=== PATIENT | female | born 1980 | race Caucasian/White ===

== ENCOUNTER 2024-09-11 16:40 | Emergency (ER) | payer OTHER, SELFPAY ==
[2024-09-11] VITALS (18 sets, daily range): BP systolic 120–144; BP diastolic 62–90; PULSE 80–92; RESP 13–26; TEMP 36.8–36.9; O2SAT 97–100; BMI 39.4
--- NOTE | 2024-09-11 18:07 | PC.NURSE ---
pt Was recently placed on blood thinners and began having vaginal bleeding. She recently began feeling dizzy and near syncopal and was sent to the ER for eval. An attempt as made to get an IV placed. This nurse made two attempts unsuccessfully to get an IV placed.
--- NOTE | 2024-09-11 18:33 | ED.FEMALEGU ---
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 Patient states that she was diagnosed with a left-sided DVT as well as bilateral PE not requiring supplemental oxygen on August 26, 2024 was told this was secondary to her control therefore was told to stop this and is now on Xarelto. She presents to outside hospital on 09/10/2024 due to persistent vaginal bleeding, she states that she had an ultrasound and was started on TXA in order to help with her bleeding. She states that she does not have an OBGYN but is already referred for 1. She states that after taking 2 dose of TXA her bleeding had stopped but she is here today because she is still feeling lightheaded dizzy. She denies any trauma or falls. Denies any actual chest pain shortness breath fever chills nausea vomiting abdominal pain pelvic pain or any other GI/ symptoms at this time. Review of records does show patient had ultrasound and lab work at outside hospital, ultrasound just showing 1.1 cm intramural fibroid, hemoglobin at that time was 9.4 patient was discharged home on TXA 1300 mg 3 times a day for the next 5 days. Related Data Allergies Allergy/AdvReac Type Severity Reaction Status Date / Time adhesive Allergy Intermediate Rash Verified 09/11/24 16:50 erythromycin base Allergy Intermediate Verified 09/11/24 16:50 Review of Systems Review of Systems Narrative: General: Denies fever, chills, weight loss HEENT: Denies headache, eye drainage, eye irritation, head trauma, sore throat, voice change Cardiovascular: Denies any chest pain, palpitations, tachycardia Respiratory: Denies any shortness of breath, cough, wheeze, stridor GI/: Positive vaginal bleeding Denies any abdominal pain, nausea, vomiting, diarrhea, bright red blood per rectum, melanotic stools, urinary frequency, urinary retention, dysuria, hematuria MSK: Denies any joint pain, muscle pains, swelling Skin: Denies any rashes, lesions, discoloration Neuro: Denies any headache, lightheadedness, dizziness, fainting, weakness Psych: Denies SI/HI Exam Narrative Exam Narrative: General: Cooperative, well-developed, not in acute distress HEENT: Normocephalic, atraumatic, PERRLA, normal sclera, eyelids normal Neck: Active full range of motion, atraumatic Chest: Normal to inspection, negative crepitus, no overlying erythema ecchymosis Respiratory: Normal respiratory effort, not in acute respiratory distress, clear to auscultation bilaterally negative cough, wheeze, tachypnea, rhonchi, rales Cardiology: Regular rate rhythm negative gallop, murmur, rubs GI/: No tenderness to palpation, soft, non rigid, normal to inspection, exam deferred MSK: Full active range of motion in all 4 extremities, atraumatic, no tenderness to palpation of any bony prominences Skin: No rashes or lesions noted Neuro: Alert awake oriented x3, moves all 4 extremities spontaneously, cranial nerves intact, able to answer all questions appropriately follows commands appropriately Psych: Cooperative, negative suicidal or homicidal ideations Initial Vital Signs Initial Vital Signs: Vital Signs Temperature 98.4 F 09/11/24 16:50 Pulse Rate 80 09/11/24 16:50 Respiratory Rate 19 09/11/24 16:50 Blood Pressure 141/62 H 09/11/24 16:50 Pulse Oximetry 100 09/11/24 16:50 Oxygen Delivery Method Room Air 09/11/24 16:50 Course Orders Ordered: ED Orders 09/11/24 18:45 Complete Blood Count AUTO DIFF Stat Comprehensive Metabolic Panel Stat Packed Cells Stat Type and Screen Stat Discontinued Medications Sodium Chloride (Normal Saline 0.9%) 1,000 mls @ 1,000 mls/hr IV BOLUS ONE Stop: 09/11/24 17:58 Last Infusion: 09/11/24 21:09 Dose: Infused Documented By: Admin: 09/11/24 18:47 Dose: 1,000 mls/hr Documented By: SHASHI Tranexamic Acid (Tranexamic Acid 1,000 Mg Vial) 1,300 mg PO NOW ONE Stop: 09/11/24 21:30 Last Admin: 09/11/24 22:20 Dose: 1,300 mg Documented By: CHINA Vital Signs Vital signs: Vital Signs - 8 hr 09/11/24 16:50 09/11/24 19:04 09/11/24 19:30 Temperature 98.4 F Pulse Rate 80 85 Respiratory Rate 19 16 Blood Pressure 141/62 H 144/85 H Pulse Oximetry 100 100 Oxygen Delivery Method Room Air 09/11/24 19:30 09/11/24 20:00 09/11/24 20:00 Temperature Pulse Rate 84 87 Respiratory Rate 17 19 Blood Pressure 139/87 Pulse Oximetry 100 98 Oxygen Delivery Method 09/11/24 20:30 09/11/24 20:30 09/11/24 20:46 Temperature 98.2 F Pulse Rate 87 86 Respiratory Rate 20 18 Blood Pressure 143/84 H 143/76 H Pulse Oximetry 99 Oxygen Delivery Method 09/11/24 20:47 09/11/24 20:47 09/11/24 21:00 Temperature Pulse Rate 88 91 H Respiratory Rate 16 16 Blood Pressure 143/76 H Pulse Oximetry 99 100 Oxygen Delivery Method 09/11/24 21:00 09/11/24 21:04 09/11/24 21:06 Temperature 98.2 F Pulse Rate 86 Respiratory Rate 13 Blood Pressure 139/79 135/79 135/79 Pulse Oximetry Oxygen Delivery Method 09/11/24 21:06 09/11/24 21:15 09/11/24 21:15 Temperature Pulse Rate 84 88 Respiratory Rate 23 16 Blood Pressure 138/77 Pulse Oximetry 99 98 Oxygen Delivery Method 09/11/24 21:30 09/11/24 21:30 09/11/24 21:45 Temperature Pulse Rate 90 91 H Respiratory Rate 18 16 Blood Pressure 143/80 H Pulse Oximetry 98 98 Oxygen Delivery Method 09/11/24 21:45 09/11/24 22:00 09/11/24 22:00 Temperature Pulse Rate 87 Respiratory Rate 14 Blood Pressure 120/67 133/86 Pulse Oximetry 99 Oxygen Delivery Method 09/11/24 22:15 09/11/24 22:15 09/11/24 22:30 Temperature Pulse Rate 91 H Respiratory Rate 23 Blood Pressure 133/90 134/85 Pulse Oximetry 98 Oxygen Delivery Method 09/11/24 22:30 09/11/24 22:45 09/11/24 22:45 Temperature Pulse Rate 90 87 Respiratory Rate 16 23 Blood Pressure 125/68 Pulse Oximetry 99 98 Oxygen Delivery Method Room Air 09/11/24 23:00 09/11/24 23:00 Temperature Pulse Rate 92 H Respiratory Rate 26 H Blood Pressure 132/74 Pulse Oximetry 97 Oxygen Delivery Method Room Air MDM - Female Genitourinary Differential Diagnosis Differential diagnosis: Likely other (Vaginal bleeding, dysfunctional uterine bleeding, anemia) Lab Data 09/11/24 18:45 09/11/24 18:45 Labs: Lab Results 09/11/24 Range/Units 18:45 WBC 12.4 H (4.5-11.0) X10^3/uL RBC 2.92 L (4.0-5.2) X10^6/uL Hgb 7.9 L (12.0-16.0) g/dL Hct 23.2 L (36-46) % MCV 79.6 L (80-100) fL MCH 27.1 (26-34) PG MCHC 34.0 (30-36) % RDW 14.5 (11.6-14.8) % Plt Count 319 (150-400) X10^3/uL Neut % (Auto) 70.7 (50-75) % Lymph % (Auto) 21.8 L (25-40) % [facility] % (Auto) 3.4 (3-14) % Eos % (Auto) 3.3 (2-4) % Baso % (Auto) 0.8 (0-2) % Neut # (Auto) 8800 H (3732-7366) /uL Lymph # (Auto) 2700 (9426-4630) /uL [facility] # (Auto) 400 (0-900) /uL Eos # (Auto) 400 (0-450) /uL Baso # (Auto) 100 (0-100) /uL Sodium 136 L (137-145) mmol/L Potassium 4.3 (3.4-5.1) mmol/L Chloride 104 (98-107) mmol/L Carbon Dioxide 27 (22-32) mmol/L BUN 13 (7-17) mg/dL Creatinine 0.79 (0.52-1.04) mg/dL Estimated GFR > 60 (>60) mL/min BUN/Creatinine Ratio 16.5 (6-22) Glucose 111 H (70-99) mg/dL Calcium 8.6 (8.4-10.2) mg/dL Total Bilirubin 0.2 (0.2-1.3) mg/dL AST 43 H (14-36) IU/L ALT 44 H (<35) IU/L Alkaline Phosphatase 55 (38-126) U/L Total Protein 6.5 (6.3-8.2) g/dL Albumin 3.5 (3.5-5.0) g/dL Globulin 3.0 (1.7-4.1) g/dL Albumin/Globulin Ratio 1.2 (1.0-2.8) Blood Type A Positive Antibody Screen Negative Crossmatch See Detail MDM Narrative Medical decision making narrative: 44-year-old female with a history of abnormal dysfunctional uterine bleeding, DVT PE on Xarelto secondary to control which was started and diagnosed on August 26, 2024 presenting for persistent vaginal bleeding, she was seen at outside hospital had normal ultrasound was started on TXA 1300 mg b.i.d. for 5 days, patient states that she has taken 2 doses of this has had decreased bleeding but states that she presents today via EMS due to the fact that she had an episode light-headedness and dizziness and syncope. But no trauma or falls. Patient had lab work performed here. Patient's hemoglobin of 7.9, given patient with symptomatic anemia we will provide transfusion RBC here. 1912: Blood consent was obtained 2318: Patient had transfusion completed here in the emergency department without any issues, we would give her her dose of for TXA here, patient was instructed to follow up with primary care and OBGYN in outpatient setting, she verbalized understanding of this and agrees to being discharged home with outpatient follow up Discharge Plan Departure Patient Disposition: Home Clinical Impression: Symptomatic anemia, Abnormal uterine bleeding Activity Restrictions/Additional Instructions: Please follow up with primary care and OBGYN in outpatient setting Please read the discharge instructions sheet carefully and bring all papers to all doctor follow-up visits, as it may contain information that your doctor may want to see. Disease processes change and evolve, if your symptoms worsen or if you develop any new symptoms that are concerning to you please return for evaluation. Your evaluation today does not show any evidence of any life-threatening/serious illnesses requiring admission to the hospital or surgery. Please follow-up with your doctor for re-evaluation in approximately 1 day. Seek immediate medical attention for any worrisome symptoms. *If you do not have a primary care provider please contact the [facility] Resource line at [phone]. They will ask some questions about your medical history and help get you set up with a doctor in the community. Referrals: Estefanía Gardner MD [Physician, [employer]PERATOR] Referral Note: Abnormal uterine bleeding with symptomatic anemia Stand Alone Forms: Patient Portal/API
[2024-09-11] MEDS: SODIUM CHLORIDE 0.9% 1,000 ML 1000 ML IV (18:47)
[2024-09-11 18:59] LABS: Add Manual Diff / Slide Review NO; Hematocrit 23.2 % (36-46); Hemoglobin 7.9 g/dL (12.0-16.0); Lymphocytes Absolute Auto 2700 /uL (1100-4500); Mean Corpuscular HGB Conc 34.0 % (30-36); Mean Corpuscular Hemoglobin 27.1 PG (26-34); Mean Corpuscular Volume 79.6 fL (80-100); Platelet Count 319 X10^3/uL (150-400)
[2024-09-11 19:17] LABS: Alanine Aminotransferase 44 IU/L (<35); Albumin 3.5 g/dL (3.5-5.0); Albumin Globulin Ratio 1.2 (1.0-2.8); Alkaline Phosphatase 55 U/L (38-126); Blood Urea Nitrogen 13 mg/dL (7-17); Calcium 8.6 mg/dL (8.4-10.2); Carbon Dioxide 27 mmol/L (22-32); Chloride 104 mmol/L (98-107); Estimated Glomerular Filt Rate > 60 mL/min (>60); Globulin 3.0 g/dL (1.7-4.1); Glucose 111 mg/dL (70-99); HEMOLYSIS < 15 (0-50); Potassium 4.3 mmol/L (3.4-5.1); Sodium 136 mmol/L (137-145); Total Protein 6.5 g/dL (6.3-8.2)
[2024-09-11] MEDS: TRANEXAMIC ACID 1,000 MG VIAL 1300 MG PO (22:20)
== END 2024-09-11 23:42 | disposition home or self-care (01) ==
PROVIDERS: Emergency Medicine; Emergency Provider Student in an Organized Health Care Education/Training Program
DX: N93.9 Abnormal uterine and vaginal bleeding, unspecified (principal); D64.89 Other specified anemias; Z86.718 Personal history of other venous thrombosis and embolism; Z79.01 Long term (current) use of anticoagulants; Z86.711 Personal history of pulmonary embolism
CPT/HCPCS: 36415; 36430; 80053; 85025; 86850; 86900; 86901; 96360; 96361; 99284; P9016

== ENCOUNTER → 2024-12-17 14:51 | Outpatient (CLI) | payer OTHER, SELFPAY ==
--- NOTE | 2024-12-17 14:51 | DI.ECHO.S_ITS ---
[facility]+ [facility] : : [id number] : [place] : : [id number] : : Phone: [phone] Echocardiogram Report + + :Name: STACEY ZHOU Study Date: 12/17/2024 Height: 65 in : :Hospital ReadingLocation: Weight: 250 lb : : Gender: Female BSA: 2.2 m2 : :: 1980 Age: 44 yrs BP: 163/122 mmHg: :Reason For Study: PULMONARY EMBOLISM : :Ordering Physician: HAYDEE, : :IZA Performed By: Ross Parra : :Referring: IZA HUBBARD : + + Interpretation Summary The ejection fraction is estimated to be 55-60%. Diastolic parameters suggest probable normal left ventricular diastolic function and normal filling pressures. The right ventricle is normal in size and function. No significant valvular abnormalities The IVC is of normal diameter and collapses greater than 50% with a sniff. This suggests a low right atrial pressure of 3 mm Hg. Procedure: A two-dimensional transthoracic echocardiogram with color flow and Doppler was performed. The study quality was technically good. There is no prior echocardiogram noted for this patient. The patient was in normal sinus rhythm during the exam. Left Ventricle: The left ventricle is normal in size. There is normal left ventricular wall thickness. There is no ventricular septal defect visualized. The ejection fraction is estimated to be 55-60%. There are no focal wall motion abnormalities. Diastolic parameters suggest probable normal left ventricular diastolic function and normal filling pressures. Right Ventricle: The right ventricle is normal in size and function. Atria: The left atrial size is normal. Right atrial size is normal. There is no Doppler evidence for an interatrial shunt. Mitral Valve: The mitral valve leaflets appear normal. There is no evidence of stenosis, fluttering, or prolapse. There is trace mitral regurgitation. Aortic Valve: The aortic valve is trileaflet. The aortic valve opens well. There is no aortic valve stenosis. No aortic regurgitation is present. Tricuspid Valve: The tricuspid valve leaflets are thin and pliable. There is a trace or physiologic amount of tricuspid regurgitation. Pulmonic Valve: The pulmonic valve leaflets are thin and pliable; valve motion is normal. There is trace pulmonic regurgitation. Great Vessels: The aortic root is normal size. The dimensions of the ascending aorta are normal. The pulmonary artery is normal size. The IVC is of normal diameter and collapses greater than 50% with a sniff. This suggests a low right atrial pressure of 3 mm Hg. Pericardium/ Pleura There is no pericardial effusion. There is no pleural effusion. MMode/2D Measurements & Calculations LVIDd: 4.5 cm LVOT diam: 1.9 cm LVIDs: 2.9 cm Ao root diam: 3.1 cm FS: 37.1 % asc Aorta Diam: 3.2 cm EPSS: 0.57 cm Ao Arch Diam (Prox Trans): 2.0 cm IVSd: 1.00 cm LVPWd: 0.91 cm LV gonzalez. diameter/BSA (cm/m^2): 2.1 LV sys. diameter/BSA (cm/m^2): 1.3 LA A2 area: 20.1 cm2 RA long axis: 4.8 cm LA A4 area: 23.2 cm2 RA area: 15.5 cm2 LA length (vol): 6.0 cm RA vol: 42.1 ml LA vol: 66.3 ml RA : 19.4 ml/m2 LA vol index: 30.5 ml/m2 IVC diam: 1.7 cm RVD1 (basal): 3.5 cm RVD2 (mid): 2.3 cm TAPSE: 2.8 cm Doppler Measurements & Calculations Ao V2 max: 135.2 cm/sec LVOT Max Tal: 103.0 cm/sec Ao V2 mean: 97.4 cm/sec LV V1 max P.2 mmHg Ao max P.3 mmHg LV V1 VTI: 22.7 cm Ao mean P.1 mmHg TIMUR(I,D): 2.1 cm2 Ao V2 VTI: 31.5 cm TIMUR(V,D): 2.2 cm2 sev ratio: 0.72 TIMUR indexed to BSA (cm^2/m^2): 0.98 MV E max tal: 101.2 cm/sec TR max tal: 226.4 cm/sec MV A max tal: 54.5 cm/sec TR max P.5 mmHg MV E/A: 1.9 PA V2 max: 94.5 cm/sec Med Peak E' Tal: 8.3 cm/sec PA V2 mean: 64.0 cm/sec E/E' med: 12.2 PA mean P.8 mmHg Lat Peak E' Tal: 9.5 cm/sec PA pr(Accel): 27.6 mmHg E/E' lat: 10.6 E/e' average: 11.4 MV dec time: 0.17 sec [facility] 67.0 ml Reading Physician:04:47 PM
== END ==
LOC: ECHO 14:51
PROVIDERS: Referring Provider Student in an Organized Health Care Education/Training Program; Visit Provider Student in an Organized Health Care Education/Training Program
DX: I26.99 Other pulmonary embolism without acute cor pulmonale (principal); I27.20 Pulmonary hypertension, unspecified
CPT/HCPCS: 93306